=== PATIENT | male | born 1960 | race Two or more races ===

== ENCOUNTER 2021-12-20 10:18 | Emergency (ER) | payer OTHER ==
[~2021-12-20] VITALS: Ht 175.3 cm; Wt 88.0 kg
== END 2021-12-20 13:07 | disposition home or self-care (01) ==
LOC: ER 10:18
DX: S01.81XA Laceration without foreign body of other part of head, initial encounter (principal); W22.8XXA Striking against or struck by other objects, initial encounter; Y93.11 Activity, swimming; Y92.832 Beach as the place of occurrence of the external cause